=== PATIENT | male | born 1990 | race African-American/Black ===

== ENCOUNTER 2018-10-17 11:31 | Emergency (ER) | payer SELFPAY ==
[~2018-10-17] VITALS: Ht 175.3 cm; Wt 68.0 kg
[2018-10-17 14:00] LABS: *AMPHETAMINES SCREEN URINE NEGATIVE (NEGATIVE); *BARBITURATES SCREEN URINE NEGATIVE (NEGATIVE); *BENZODIAZEPINES SCREEN URINE NEGATIVE (NEGATIVE); *COCAINE SCREEN URINE NEGATIVE (NEGATIVE); CANNABINOID URINE SCREEN PRESUMTIVE POSITIVE (NEGATIVE); PHENCYCLIDINE URINE SCREEN NEGATIVE (NEGATIVE)
[2018-10-17 14:01] LABS: METHADONE URINE SCREEN NEGATIVE (NEGATIVE); OPIATES URINE SCREEN NEGATIVE (NEGATIVE)
[2018-10-17 15:09] LABS: BASOPHILS % 0.3 % (0.0-2.0); EOSINOPHILS % 1.5 % (0.0-5.0); HEMATOCRIT. 39.4 % (42.0-52.0); HEMOGLOBIN. 13.3 g/dL (14.0-18.0); LYMPHOCYTES % 18.5 % (20.0-50.0); MEAN CORPUSCULAR HEMOGLOBIN 28.3 pg (28.0-32.0); MEAN CORPUSCULAR VOLUME 83.8 fL (80.0-94.0); MEAN PLATELET VOLUME 7.8 fl (7.4-10.4); MONOCYTES % 7.6 % (2.0-8.0); NEUTROPHILS % 72.1 % (40.0-76.0); PLATELET 192 x1000/uL (130-400); RED BLOOD CELL COUNT 4.71 mill/uL (4.7-6.1); RED CELL DISTRIBUTION WIDTH 13.8 % (11.6-14.6)
[2018-10-17 15:12] LABS: CHLORIDE 105 mEq/L (98-107)
[2018-10-17 15:18] LABS: ETHANOL BLOOD < 10 mg/dL
[2018-10-17 17:12] VITALS: BP 135/94
== END 2018-10-17 17:27 | disposition home or self-care (01) ==
LOC: ER 11:31
DX: R44.0 Auditory hallucinations (principal); Z59.0 Homelessness; J45.909 Unspecified asthma, uncomplicated; F17.200 Nicotine dependence, unspecified, uncomplicated
CPT/HCPCS: 36415; 80053; 80305; 80320; 85025; 93005; 99284; Z7610; G0480

== ENCOUNTER 2018-10-27 13:21 | Emergency (ER) | payer SELFPAY ==
[~2018-10-27] VITALS: Ht 165.1 cm; Wt 69.0 kg
[2018-10-27 21:40] VITALS: BP 110/55
== END 2018-10-27 21:41 | disposition home or self-care (01) ==
LOC: ER 13:21
DX: Z00.00 Encounter for general adult medical examination without abnormal findings (principal); J45.909 Unspecified asthma, uncomplicated; F17.210 Nicotine dependence, cigarettes, uncomplicated; Z59.0 Homelessness
CPT/HCPCS: 99283

== ENCOUNTER 2023-04-23 22:36 | Emergency (ER) | payer OTHER ==
[~2023-04-23] VITALS: Ht 165.1 cm; Wt 68.0 kg
[2023-04-23 23:05] VITALS: BP 113/68; PULSE 81; RESP 16; TEMP 98.6; O2SAT 99
[2023-04-24 01:09] LABS: CLARITY URINE CLEAR (CLEAR); COLOR URINE YELLOW (YELLOW); GLUCOSE URINE NEGATIVE (NEGATIVE); KETONES URINE NEGATIVE (NEGATIVE); LEUKOCYTE ESTERASE URINE NEGATIVE (NEGATIVE); NITRITE URINE NEGATIVE (NEGATIVE); OCCULT BLOOD URINE NEGATIVE (NEGATIVE); PROTEIN URINE NEGATIVE (NEGATIVE); SPECIFIC GRAVITY URINE 1.026 (1.005-1.030)
[2023-04-24] MEDS ORDERED: DOXY100C5 PO (06:00)
[2023-04-24] MEDS ORDERED: CEFTRIAXONE SODIUM 1G VIAL IM ONE (06:00)
[2023-04-24] MEDS ORDERED: DOXYCYCLINE HYCLATE 100MG CAPSULE PO ONE (06:00)
[2023-04-28 04:07] LABS: CHLAMYDIA TRACHOMATIS NAA Negative (Negative); NEISSERIA GONORRHOEAE NAA Negative (Negative)
== END 2023-04-24 07:42 | disposition home or self-care (01) ==
LOC: ER 22:36
DX: A64 Unspecified sexually transmitted disease (principal); R30.9 Painful micturition, unspecified; J45.909 Unspecified asthma, uncomplicated
CPT/HCPCS: 99283; 87491; 87591; 81003; 96372; J0696; Z7610